=== PATIENT | male | born 1945 | race Caucasian/White ===

== ENCOUNTER 2019-05-13 11:24 | Outpatient (CLI) | payer MEDICARE, SELFPAY ==
[2019-05-13 12:54] LABS: ALT 37 U/L (12-78); AST 15 U/L (15-37); Albumin 3.3 g/dL (3.4-5.0); Alkaline Phosphatase 56 U/L (46-116); Anion Gap 11.1 mmol/L (3-11); BUN 19 mg/dL (7-18); Bilirubin, Total 0.6 mg/dL (0.2-1.0); CO2 24.9 mmol/L (21.0-32.0); CREATININE 0.98 mg/dL (0.70-1.30); Calcium 9.1 mg/dL (8.5-10.1); Chloride 104 mmol/L (98-107); Glucose 93 mg/dL (70-100); Potassium 4.4 mmol/L (3.5-5.1); Sodium 140 mmol/L (136-145); Total Protein 6.4 g/dL (6.4-8.2)
[2019-05-13 15:14] LABS: HCT 35.5 % (40.0-50.0); HGB 11.5 g/dL (13.5-17.5); Mean Corp. HGB Concentration 32.4 g/dL (32.0-36.0); Mean Corpuscular Hemoglobin 30.1 pg (27.0-33.0); Mean Corpuscular Volume 92.9 fL (80-95); Mean Platelet Volume 9.5 fL (8.0-11.0); Platelet Count 196 x1000/uL (130-400); RBC 3.82 m/cumm (4.50-6.00); RBC Distribution Width 18.4 % (11.8-14.1); White Blood Cell Count 7.62 k/cumm (4.4-10.8)
[2019-05-13 15:15] LABS: Absolute Eosinophil Count 0.08 k/cumm (0.0-0.7)
[2019-05-13 15:17] LABS: Absolute Lymphocyte Count 0.76 k/cumm (1.2-3.4); Absolute Monocyte Count 0.46 k/cumm (0.11-0.7); Absolute Neutrophil Count 6.32 k/cumm (1.2-6.7); Anisocytosis 2+; Atypical Lymphocytes % 1; Diff Comment Manual Differential
[2019-05-13 15:18] LABS: Poikilocytes 1+; Polychromasia Present
[2019-05-14 10:09] LABS: PSA, Screening 16.7 ng/ml (0-6.5)
== END 2019-05-13 11:44 ==
PROVIDERS: PCP Family Medicine; Visit Provider Internal Medicine Hematology & Oncology
DX: C61 Malignant neoplasm of prostate (principal)
CPT/HCPCS: 36415; 80053; 84153; 85025

== ENCOUNTER 2019-05-30 09:34 | Outpatient (CLI) | payer MEDICARE, SELFPAY ==
[2019-05-30 10:00] LABS: Abs Immature Grans 0.03 k/cumm (0.0-0.09); Absolute Basophil Count 0.01 k/cumm (0.0-0.2); Absolute Eosinophil Count 0.03 k/cumm (0.0-0.7); Absolute Lymphocyte Count 0.61 k/cumm (1.2-3.4); Absolute Monocyte Count 0.66 k/cumm (0.11-0.7); Absolute Neutrophil Count 4.18 k/cumm (1.2-6.7); Basophils % 0.2; Eosinophils % 0.5; HCT 35.9 % (40.0-50.0); HGB 11.4 g/dL (13.5-17.5); Immature Grans % 0.5; Lymphocytes % 11.1; Mean Corp. HGB Concentration 31.8 g/dL (32.0-36.0); Mean Corpuscular Volume 94.5 fL (80-95); Mean Platelet Volume 8.9 fL (8.0-11.0); Neutrophils % 75.7; Platelet Count 198 x1000/uL (130-400); RBC Distribution Width 19.1 % (11.8-14.1); White Blood Cell Count 5.52 k/cumm (4.4-10.8)
[2019-05-30 10:13] LABS: ALT 40 U/L (16-63); AST 14 U/L (15-37); Albumin 1.9 g/dL (3.4-5.0); Alkaline Phosphatase 44 U/L (46-116); Anion Gap 8.8 mmol/L (3-11); BUN 16 mg/dL (7-18); Bilirubin, Total 0.4 mg/dL (0.2-1.0); CO2 27.2 mmol/L (21.0-32.0); CREATININE 0.85 mg/dL (0.70-1.30); Calcium 8.7 mg/dL (8.5-10.1); Chloride 107 mmol/L (98-107); Glucose 105 mg/dL (70-100); Potassium 4.2 mmol/L (3.5-5.1); Sodium 143 mmol/L (136-145); Total Protein 6.5 g/dL (6.4-8.2)
[2019-06-02 10:57] LABS: PSA, Diagnostic 11.9 ng/ml (0-6.5)
== END 2019-05-30 09:54 ==
PROVIDERS: PCP Family Medicine; Visit Provider Internal Medicine Hematology & Oncology
DX: C61 Malignant neoplasm of prostate (principal)
CPT/HCPCS: 36415; 80053; 84153; 85025

== ENCOUNTER 2019-06-23 09:34 | Outpatient (CLI) | payer MEDICARE, SELFPAY ==
[2019-06-23 09:52] LABS: Abs Immature Grans 0.04 k/cumm (0.0-0.09); Absolute Basophil Count 0.01 k/cumm (0.0-0.2); Absolute Lymphocyte Count 0.65 k/cumm (1.2-3.4); Absolute Monocyte Count 0.78 k/cumm (0.11-0.7); Absolute Neutrophil Count 5.79 k/cumm (1.2-6.7); Basophils % 0.1; HCT 38.6 % (40.0-50.0); HGB 12.4 g/dL (13.5-17.5); Immature Grans % 0.6; Lymphocytes % 8.9; Mean Corp. HGB Concentration 32.1 g/dL (32.0-36.0); Mean Corpuscular Hemoglobin 30.1 pg (27.0-33.0); Mean Corpuscular Volume 93.7 fL (80-95); Monocytes % 10.7; Neutrophils % 79.7; Platelet Count 215 x1000/uL (130-400); RBC 4.12 m/cumm (4.50-6.00); RBC Distribution Width 18.7 % (11.8-14.1); White Blood Cell Count 7.27 k/cumm (4.4-10.8)
[2019-06-23 10:15] LABS: ALT 33 U/L (16-63); AST 13 U/L (15-37); Albumin 3.2 g/dL (3.4-5.0); Alkaline Phosphatase 54 U/L (46-116); Anion Gap 8.3 mmol/L (3-11); BUN 14 mg/dL (7-18); Bilirubin, Total 0.4 mg/dL (0.2-1.0); CO2 26.7 mmol/L (21.0-32.0); CREATININE 0.84 mg/dL (0.70-1.30); Calcium 9.1 mg/dL (8.5-10.1); Chloride 107 mmol/L (98-107); Glucose 102 mg/dL (70-100); Potassium 4.1 mmol/L (3.5-5.1); Sodium 142 mmol/L (136-145); Total Protein 6.6 g/dL (6.4-8.2)
[2019-06-24 10:17] LABS: PSA, Diagnostic 12.9 ng/ml (0-6.5)
== END 2019-06-23 09:54 ==
PROVIDERS: PCP Family Medicine; Visit Provider Internal Medicine Hematology & Oncology
DX: C61 Malignant neoplasm of prostate (principal)
CPT/HCPCS: 36415; 80053; 84153; 85025

== ENCOUNTER 2019-07-15 01:41 | Outpatient (CLI) | payer MEDICARE, SELFPAY ==
--- NOTE | 2019-07-15 10:37 | DI.CT_ITS ---
EXAM: CT THORACIC SPINE W CLINICAL HISTORY: PROSTATE CANCER C61, BACK PAIN COMPARISON: CT LUMBAR SPINE W from 07/15/2019 FINDINGS: CT examination of the thoracic spine and CT examination the lumbar spine are interpreted in conjuncti on. The patient reportedly has a history of prostatic carcinoma. There is marked demineralization o f the bones. In the thoracic spine there is fusion of the endplates at multiple levels. There are a reas of sclerosis involving vertebral bodies at what appear to be the T7, T6, T4 and T3 levels suspic ious for prostatic metastasis. Sclerotic areas noted in proximal left and right ribs at multiple sit es as well also consistent with metastatic disease. Findings are nonspecific. Mild compression frac ture of L3 noted anteriorly. No other fracture identified. Slight contour abnormality of the ventilated rib fitter ior cortex of the T3 vertebral body also noted which may represent acute or old finding. The availab le spinal canal does not appear significantly narrowed. Visualized lungs appear grossly clear. Scanning of the lumbar spine shows severe degenerative changes of the facets. There are multiple sma ll focal areas of sclerosis involving sacrum and right iliac bone. Areas of mixed lytic and scleroti c process seen involving all lumbar vertebrae, nonspecific but suspicious for metastatic disease. Pr ominent endplate compressions of L 3 vertebral body noted without loss of height of the vertebra. En dplate compressions also noted at L5 and L4 to a lesser degree. Available spinal canal appears gross ly intact. IMPRESSION: Severe degenerative change. Marked widespread bony demineralization. 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 Mild loss of height of L3 vertebral body anteriorly, posterior cortex is also mildly prominent, uncer tain age of this finding, no gross central canal spinal stenosis at this level.
[2019-07-15] MEDS: Omnipaque 350 MG/ML 100 ML BTL IJ (11:36)
== END 2019-07-15 02:01 ==
PROVIDERS: PCP Family Medicine; Visit Provider Internal Medicine Hematology & Oncology
DX: C61 Malignant neoplasm of prostate (principal); M54.5 Low back pain; M51.36 Other intervertebral disc degeneration, lumbar region; M81.8 Other osteoporosis without current pathological fracture; C79.51 Secondary malignant neoplasm of bone; Z98.1 Arthrodesis status
CPT/HCPCS: 36591; 80053; 72129; 72132; 84153; 85025; J3490

== ENCOUNTER 2019-07-28 10:01 | Outpatient (CLI) | payer MEDICARE, SELFPAY ==
[2019-07-28 10:27] LABS: Abs Immature Grans 0.04 k/cumm (0.0-0.09); Absolute Basophil Count 0.01 k/cumm (0.0-0.2); Absolute Lymphocyte Count 0.63 k/cumm (1.2-3.4); Absolute Monocyte Count 0.63 k/cumm (0.11-0.7); Absolute Neutrophil Count 4.41 k/cumm (1.2-6.7); Basophils % 0.2; HCT 39.7 % (40.0-50.0); HGB 12.9 g/dL (13.5-17.5); Immature Grans % 0.7; Mean Corp. HGB Concentration 32.5 g/dL (32.0-36.0); Mean Corpuscular Volume 92.3 fL (80-95); Mean Platelet Volume 9.4 fL (8.0-11.0); Neutrophils % 77.1; Platelet Count 179 x1000/uL (130-400); RBC Distribution Width 18.4 % (11.8-14.1); White Blood Cell Count 5.72 k/cumm (4.4-10.8)
[2019-07-28 11:18] LABS: ALT 38 U/L (16-63); AST 12 U/L (15-37); Albumin 3.3 g/dL (3.4-5.0); Alkaline Phosphatase 50 U/L (46-116); Anion Gap 5.5 mmol/L (3-11); BUN 15 mg/dL (7-18); Bilirubin, Total 0.3 mg/dL (0.2-1.0); CO2 29.5 mmol/L (21.0-32.0); CREATININE 0.89 mg/dL (0.70-1.30); Calcium 9.2 mg/dL (8.5-10.1); Chloride 107 mmol/L (98-107); Glucose 99 mg/dL (70-100); Potassium 4.1 mmol/L (3.5-5.1); Sodium 142 mmol/L (136-145); Total Protein 6.3 g/dL (6.4-8.2)
[2019-07-29 11:21] LABS: PSA, Diagnostic 16.5 ng/ml (0-6.5)
== END 2019-07-28 10:21 ==
PROVIDERS: PCP Family Medicine; Visit Provider Internal Medicine Hematology & Oncology
DX: C61 Malignant neoplasm of prostate (principal)
CPT/HCPCS: 36415; 80053; 84153; 85025

== ENCOUNTER 2019-07-31 01:56 | Outpatient (RCR) | payer MEDICARE, SELFPAY ==
[2019-07-15] MEDS: Heparin 500 UNITS/5 ML SYRINGE IV (10:20)
[2019-07-15] MEDS: Normal Saline Flush 10 ML SYR IVP (10:20)
[2019-07-15 10:52] LABS: Abs Immature Grans 0.07 k/cumm (0.0-0.09); Absolute Basophil Count 0.02 k/cumm (0.0-0.2); Absolute Lymphocyte Count 0.83 k/cumm (1.2-3.4); Absolute Monocyte Count 0.91 k/cumm (0.11-0.7); Absolute Neutrophil Count 6.62 k/cumm (1.2-6.7); Basophils % 0.2; HCT 38.6 % (40.0-50.0); HGB 12.5 g/dL (13.5-17.5); Immature Grans % 0.8; Lymphocytes % 9.8; Mean Corp. HGB Concentration 32.4 g/dL (32.0-36.0); Mean Corpuscular Hemoglobin 30.1 pg (27.0-33.0); Mean Platelet Volume 9.6 fL (8.0-11.0); Monocytes % 10.8; Neutrophils % 78.4; Platelet Count 210 x1000/uL (130-400); RBC 4.15 m/cumm (4.50-6.00); RBC Distribution Width 18.5 % (11.8-14.1); White Blood Cell Count 8.45 k/cumm (4.4-10.8)
[2019-07-15 11:08] LABS: ALT 29 U/L (16-63); AST 13 U/L (15-37); Albumin 3.3 g/dL (3.4-5.0); Alkaline Phosphatase 55 U/L (46-116); Anion Gap 8.1 mmol/L (3-11); BUN 17 mg/dL (7-18); Bilirubin, Total 0.5 mg/dL (0.2-1.0); CO2 27.9 mmol/L (21.0-32.0); CREATININE 1.04 mg/dL (0.70-1.30); Calcium 8.5 mg/dL (8.5-10.1); Chloride 105 mmol/L (98-107); Glucose 97 mg/dL (70-100); Potassium 4.4 mmol/L (3.5-5.1); Sodium 141 mmol/L (136-145); Total Protein 6.6 g/dL (6.4-8.2)
[2019-07-16 10:19] LABS: PSA, Diagnostic 18.7 ng/ml (0-6.5)
== END 2019-07-31 23:59 | disposition home or self-care (01) ==
LOC: INF 01:56
PROVIDERS: PCP Family Medicine; Visit Provider Internal Medicine Hematology & Oncology
DX: Z45.2 Encounter for adjustment and management of vascular access device; C61 Malignant neoplasm of prostate
CPT/HCPCS: 36591; 80053; 84153; 85025